=== PATIENT | female | born 1945 | race Caucasian/White ===

== ENCOUNTER → 2017-03-16 | Outpatient (CLI) | payer OTHER | LOC: CIMAGING 07:54 | DX: Z12.31 Encounter for screening mammogram for malignant neoplasm of breast (principal) | CPT/HCPCS: G0202 ==

== ENCOUNTER 2018-01-23 22:24 | Observation (INO) | payer OTHER ==
--- NOTE | 2018-01-23 22:50 | CPEKG ---
Heart Rate: 61 RR Interval: 984 P-R Interval: 172 QRSD Interval: 138 QT Interval: 492 QTC Interval: 496 P Delano: 1 QRS Delano: 5 T Wave Delano: 20 EKG Severity - ABNORMAL ECG - EKG Impression: SINUS RHYTHM EKG Impression: RIGHT BUNDLE BRANCH BLOCK Electronically Signed By: Michelle Dixon 24-Jan-2018 07:16:19
[2018-01-23 22:59] LABS: PLATELET COUNT 290 10^3/uL (150-400)
[2018-01-23 23:05] LABS: INR 1.1 (0.83-1.16); PROTIME(PATIENT) 14.4 SEC (12.0-15.0)
--- NOTE | 2018-01-23 23:24 | EDPHY ---
General - History Smoking Status: Never smoked Time Seen by Provider: 01/23/18 22:45 Narrative: CHIEF COMPLAINT: Slurred speech, dizziness HISTORY OF PRESENT ILLNESS: Patient presents with spouse at bedside. She complains of 2 episodes of feeling dizzy, lightheaded and 1 episode of slurred speech. The 1st episode was the 9:00 a.m.. It lasted several minutes of lightheadedness and dizziness. No spinning sensation. No nausea. She says"I felt weird and couldn't move." No headache or chest pain. No shortness of breath. This resolved spontaneously. It returned again at 9:30 p.m. This evening while sitting on the couch. She describes feeling lightheaded with no spinning sensation. She reports slurred speech and her corroborates this. There is no unilateral complain of any kind. No weakness. No sensory complaints distally. Symptoms resolved approximately 10 min later spontaneously and have not returned. No previous TIA or stroke. No coronary artery disease. She does have hypertension on 3 medications. She does have secondary complaint of dysuria, starting yesterday feeling as though she has a urinary tract infection. No flank pain. No fever. No hematuria. No other associated complaints or modifying factors. REVIEW OF SYSTEMS: Ten systems reviewed and are negative unless otherwise noted in the HPI PCP: Dr. Mcghee SPECIALISTS: None PAST MEDICAL HISTORY: Hypertension, PAST SURGICAL HISTORY: Gastric bypass, cholecystectomy SOCIAL HISTORY: Never smoker. No drug use. Occasional alcohol use. 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 No nystagmus or dysconjugate gaze. EOMs intact. ENT, Mouth: Mucous membranes moist Neck: Normal inspection, supple, non-tender Respiratory: Lungs are clear to auscultation Cardiovascular: Regular rate and rhythm. No murmur. Symmetric radial and DP pulses 2+. Gastrointestinal: Abdomen is soft and nontender Back: non-tender, no bony abnormalities Neurological: GCS 15. Cranial nerves 2-12 grossly intact. A&O, nonfocal, normal gait. Strength is symmetric in all 4 limbs. No pronator drift. Normal [id number]. Normal heel to [place]. NIH stroke scale 0. Skin: Warm and dry, no rash Extremities: Nontender, no pedal edema Psychiatric: Mood and affect normal DIFFERENTIAL DIAGNOSES: Including but not limited to hemorrhagic stroke, ischemic stroke, TIA, vertigo, near-syncope MDM: 10:55 p.m. Suspected TIA with 2 episodes today. Most recently 9:30 p.m. Lasted for approximately 10 min of slurred speech, lightheadedness and difficulty moving. She is completely asymptomatic at this time. Her neuro exam is well within normal limits tender NIH stroke scale is 0. Her vital signs do reveal hypertension but no tachycardia or abnormalities otherwise. She is in no acute distress. I discussed with Dr. Dixon and will proceed with TIA vs Stroke workup. 11:20 p.m. Notified by radiologist Dr. Alvarado, CT scan of the head is unremarkable for any acute findings. Laboratory studies returning with no abnormalities of the CBC or chemistry. Troponin negative. Urinalysis does suggest urinary tract infection. I have ordered aspirin by mouth. Dr. Dixon will evaluate the patient. 11:40 p.m. Case discussed with hospitalist Dr. Toure. She will admit the patient to her service. We will start treatment of the UTI with p.o. Keflex. She is admitted in stable condition. She is still asymptomatic at this time. Pressure is now 177/85. EKG interpretation: Dr. Dixon SUPERVISION: Patient was evaluated and examined in conjunction with my secondary supervising physician as documented. We have both examined the patient. (Irvin Alexis) Medical Decision Making: ED PA DICTATION I evaluated and participated in the management of the patient. I also evaluated the patient independently. My co-signature indicates that I have reviewed this chart and I agree with the findings and plan of care as documented. My personal H&P findings include: This is a 72-year-old female with 2 discrete episodes lasting for several minutes which include dizziness, slurring of speech, some clumsiness of her hands. She has a history of hypertension. Here she is hypertensive, her neurologic exam is unremarkable. Her CT scan of her head is unremarkable as well for any acute findings. I feel she could be suffering from a TIA and agree with the PAs assessment as detailed above. (Michelle Dixon) - Diagnostics Imaging Results: Imaging Impressions Chest X-Ray 01/23/18 22:52 Impression: Clear lungs. No acute process. Head CT 01/23/18 22:52 Impression: Normal brain. No intracranial hemorrhage or evidence of ischemia. Findings discussed with Emergency Department physician senior sales assistant, Irvin Alexis at 01/23/2018 23:23. - Objective Vital Signs: Initial Vital Signs Temperature (C) 36.9 C 01/23/18 22:27 Heart Rate 60 01/23/18 22:27 Respiratory Rate 16 01/23/18 22:27 Blood Pressure 223/73 H 01/23/18 22:27 O2 Sat (%) 97 01/23/18 22:27 O2 Delivery Mode Room Air Allergies/Adverse Reactions: ampicillin Allergy (Verified 01/23/18 22:33) sulfamethoxazole [From Bactrim] Allergy (Verified 01/23/18 22:33) trimethoprim [From Bactrim] Allergy (Verified 01/23/18 22:33) Home Medications: Medication Instructions Recorded Atenolol 01/23/18 Cozaar 01/23/18 Hydrochlorothiazide 01/23/18 Laboratory Results: Laboratory Results 01/23/18 22:50 01/23/18 22:50 01/23/18 01/23/18 01/23/18 23:00 22:50 22:50 WBC RBC Hgb Hct MCV MCH MCHC RDW Plt Count MPV Neut % (Auto) Lymph % (Auto) [place] % (Auto) Eos % (Auto) Baso % (Auto) Nucleat RBC Rel Count Absolute Neuts (auto) Absolute Lymphs (auto) Absolute Monos (auto) Absolute Eos (auto) Absolute Basos (auto) Absolute Nucleated RBC Immature Gran % Immature Gran # PT 14.4 SEC SEC (12.0-15.0) INR 1.10 (0.83-1.16) APTT 28.1 SEC SEC (23.0-38.0) Sodium 143 mEq/L mEq/L (135-145) Potassium 3.5 mEq/L mEq/L (3.5-5.2) Chloride 104 mEq/L mEq/L (97-110) Carbon Dioxide 27 mEq/l mEq/l (22-31) Anion Gap 12 mEq/L mEq/L (8-16) BUN 20 mg/dL mg/dL (7-23) Creatinine 0.4 mg/dL L mg/dL (0.6-1.0) Estimated GFR > 60 Glucose 93 mg/dL mg/dL (70-100) Calcium 9.1 mg/dL mg/dL (8.5-10.4) Troponin I < 0.012 ng/mL ng/mL (0.000-0.034) Urine Color YELLOW Urine Appearance CLEAR Urine pH 6.0 (5.0-7.5) Ur Specific [place] 1.020 (1.002-1.030) Urine Protein NEGATIVE (NEGATIVE) Urine Ketones TRACE H (NEGATIVE) Urine Blood NEGATIVE (NEGATIVE) Urine Nitrate NEGATIVE (NEGATIVE) Urine Bilirubin NEGATIVE (NEGATIVE) Urine Urobilinogen 0.2 EU EU (0.2-1.0) Ur Leukocyte Esterase 2+ H (NEGATIVE) Urine RBC OCCASIONAL /hpf /hpf (0-3) Urine WBC 5-10 /hpf H /hpf (0-3) Ur Epithelial Cells 2+ /lpf H /lpf (NONE-1+) Urine Bacteria 2+ /hpf H /hpf (NONE SEEN) Urine Mucus 1+ /lpf /lpf (NONE-1+) Urine Glucose NEGATIVE (NEGATIVE) 01/23/18 22:50 WBC 6.35 10^3/uL 10^3/uL (3.80-9.50) RBC 4.49 10^6/uL 10^6/uL (4.18-5.33) Hgb 14.1 g/dL g/dL (12.6-16.3) Hct 41.5 % % (38.0-47.0) MCV 92.4 fL fL (81.5-99.8) MCH 31.4 pg pg (27.9-34.1) MCHC 34.0 g/dL g/dL (32.4-36.7) RDW 12.0 % % (11.5-15.2) Plt Count 290 10^3/uL 10^3/uL (150-400) MPV 9.6 fL fL (8.7-11.7) Neut % (Auto) 52.3 % % (39.3-74.2) Lymph % (Auto) 37.6 % % (15.0-45.0) [place] % (Auto) 6.6 % % (4.5-13.0) Eos % (Auto) 2.8 % % (0.6-7.6) Baso % (Auto) 0.5 % % (0.3-1.7) Nucleat RBC Rel Count 0.0 % % (0.0-0.2) Absolute Neuts (auto) 3.32 10^3/uL 10^3/uL (1.70-6.50) Absolute Lymphs (auto) 2.39 10^3/uL 10^3/uL (1.00-3.00) Absolute Monos (auto) 0.42 10^3/uL 10^3/uL (0.30-0.80) Absolute Eos (auto) 0.18 10^3/uL 10^3/uL (0.03-0.40) Absolute Basos (auto) 0.03 10^3/uL 10^3/uL (0.02-0.10) Absolute Nucleated RBC 0.00 10^3/uL 10^3/uL (0-0.01) Immature Gran % 0.2 % % (0.0-1.1) Immature Gran # 0.01 10^3/uL 10^3/uL (0.00-0.10) PT INR APTT Sodium Potassium Chloride Carbon Dioxide Anion Gap BUN Creatinine Estimated GFR Glucose Calcium Troponin I Urine Color Urine Appearance Urine pH Ur Specific [place] Urine Protein Urine Ketones Urine Blood Urine Nitrate Urine Bilirubin Urine Urobilinogen Ur Leukocyte Esterase Urine RBC Urine WBC Ur Epithelial Cells Urine Bacteria Urine Mucus Urine Glucose Medications Given: Hydralazine HCl (Apresoline) 10 mg IVP Q2HRS PRN PRN Reason: SBP Greater Than Stop: 07/23/18 00:41 Last Admin: 01/24/18 00:58 Dose: 10 mg Discontinued Medications Aspirin (Aspirin) 325 mg PO EDNOW ONE Stop: 01/23/18 23:31 Last Admin: 01/23/18 23:34 Dose: 325 mg Cephalexin HCl (Keflex) 500 mg PO EDNOW ONE PRN Reason: Protocol Stop: 01/23/18 23:44 Last Admin: 01/23/18 23:53 Dose: 500 mg Departure - Departure Disposition: [facility] In[facility] Acute Clinical Impression: TIA (transient ischemic attack) Qualifiers: Transient cerebral ischemia type: unspecified Qualified Code(s): G45.9 - Transient cerebral ischemic attack, unspecified Condition: Fair
[2018-01-23] MEDS ORDERED: ASPIRIN 325 MG TAB PO ONE (23:30)
[2018-01-23] MEDS ORDERED: CEPHALEXIN 500 MG CAP PO ONE (23:43)
[2018-01-23] MEDS ORDERED: ACETAMINOPHEN 325 MG TAB PO PRN (23:59)
[2018-01-23] MEDS ORDERED: ONDANSETRON 4 MG/2 ML VIAL IVP PRN (23:59)
[2018-01-24] MEDS ORDERED: hydrALAZINE 20 MG/ML VIAL IVP PRN (00:42)
[2018-01-24 05:16] LABS: PLATELET COUNT 245 10^3/uL (150-400)
--- NOTE | 2018-01-24 08:44 | GHP ---
[f rep st] HISTORY AND PHYSICAL DATE OF ADMISSION: 01/23/2018 SOURCE: Patient provides history, appears reliable. EMR was reviewed and case discussed with ED pro vider. CHIEF COMPLAINT: Slurred speech and dizziness. 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 The patient reports her 1st episode occurred approximately 0900 in the morning. She was standing in the kitchen when she suddenly felt dizzy. She denies any numbness, ti ngling, or focal weakness, but she felt so lightheaded she thought she might pass out. The patient c ried out for her and she felt that she was slurring her words. He did arrive and after sever al minutes, her symptoms improved and resolved. The patient subsequently went about her day and in t he evening while she was sitting on the couch with her family watching TV, she developed sudden onset of similar symptoms with lightheadedness, presyncope, and slurring speech. This again did seem to r esolve after less than 10 minutes. Given the recurrence of episode, patient presented to the emergen cy department for further evaluation. In the ED, patient was noted to have normal neurologic functio n without any focal findings and CT head was found to be negative. At time of my interview on the vt dical floor, patient was denying any issues or complaints or symptoms neurologically. She denies any associated chest pain, palpitations, shortness of breath, cough, fevers, chills, or changes in visio n. REVIEW OF SYSTEMS: Negative, except as noted above. ALLERGIES: Bactrim and ampicillin. HOME MEDICATIONS: Cozaar, atenolol, hydrochlorothiazide, and multivitamins. PAST MEDICAL HISTORY: Significant for hypertension and melanoma that did not require any chemotherap y. PAST SURGICAL HISTORY: Significant for gastric bypass, cholecystectomy, JENNIFER and BSO. FAMILY HISTORY: Negative for CVA or seizures. SOCIAL HISTORY: Patient is , lives with her . She has good family support in [facility]. S he does not smoke or use drugs. She only drinks occasionally. 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 CODE STATUS: DNR, DNI. PHYSICAL EXAMINATION: VITAL SIGNS: Upon arrival to the emergency department, blood pressure 223/73, heart rate was 60, respiratory rate 16, O2 saturation 97% on room air with temperature 36.9. Vitals available at time of interview: Blood pressure 220/66, heart rate 75, respiratory rate 17, O2 satur ation 95% on room air with a temperature 36.6. GENERAL: No acute distress. Very pleasant, overweig ht, adult female who is resting comfortably in bed. HEAD: Normocephalic, atraumatic. EYES: Extrao cular muscles are intact. Pupils equal, round, reactive to light bilaterally symmetric, and no scler al icterus or conjunctival injection. ENT: Mucous membranes appear moist. No pharyngeal erythema o r exudate. NECK: Supple. Trachea midline. NEUROLOGIC: Cranial nerves 2-12 intact symmetric bilat erally. Patient without a pronator drift. She is awake, alert, and oriented x4. Sensation intact t o upper and lower extremities. PSYCHIATRIC: Thought process, content, and questions appropriate. P atient oriented as above. LABORATORY STUDIES: WBC 6.35, H and H 14.1 and 41.5, MCV 92.4, platelet count is 290. No bands. PT is 14.4, INR is 1.1, PTT is 28.1. Sodium 143, potassium 3.5, chloride 104, CO2 is 27, anion gap 12, BUN 20, creatinine 0.4, GFR greater than 60, glucose 93, calcium 9.1. Troponin is negative. UA specific gravity 1.020 with a pH of 6.4 , leukocyte esterase 2+, WBCs 5-10, bacteria 2+, mucus 1+, otherwise negative. EKG reviewed myself showing normal sinus rhythm, sinus burak in the 50s-60s, right bundle branch bloc k. No acute ST changes. QTc is 496. CT head was negative for acute findings. ASSESSMENT AND PLAN: This is a very pleasant 72-year-old female who presents with multiple episodes of dysarthria and severe sudden onset lightheadedness. 1. Transient ischemic attack, suspicious, given patient's recurrent symptoms and slurred speech. e has no evidence of any focal deficits at this time and CT head was within normal limits. We will p johana to obtain an echocardiogram with bubble, carotid Dopplers, and MRI this morning. Non t-PA stroke protocol in place. Physical therapy, occupational therapy, speech therapy consulted for assessment. 2. Accelerated hypertension. The patient is on triple antihypertensive therapy. Despite this, she has had several episodes of elevated blood pressure. She reports this has been not typical, particul abraham with a systolic blood pressure in the 200s. Hydralazine will be available p.r.n. We will plan to resume patient's home medications, but will need to monitor her heart rate before resuming atenolo l. 3. Fluid electrolyte nutrition. Patient tolerating p.o. Diet is cardiac. 4. Electrolyte. Replacement if needed. 5. Nutrition. Diet as tolerated. 6. Prophylaxis. Sequential compression devices. Initiating anticoagulation secondary to patient's increased risk factors. 7. Cor is do not resuscitate, do not intubate. Discussed with the patient. She does not want any r esuscitation. 8. Disposition. Patient has been admitted to observation status, currently in the PCU. /[id number]/MODL
[2018-01-24] MEDS ORDERED: ENOXAPARIN 40 MG/0.4 ML SYR SC SCH (09:00)
[2018-01-24] MEDS ORDERED: ASPIRIN 81 MG CHEWABLE TAB PO SCH (09:00)
[2018-01-24] MEDS ORDERED: NON-FORMULARY NEW DRUG (Losartan Potassium [Losartan Potassium] 100 MG) PO SCH (11:45)
[2018-01-24] MEDS ORDERED: METRONIDAZOLE 0.75 % 45 GEL TP SCH (11:45)
[2018-01-24] MEDS ORDERED: HYDROCHLOROTHIAZIDE 12.5 MG CAP PO SCH (11:45)
[2018-01-24] MEDS ORDERED: ATENOLOL 50 MG TAB PO SCH (11:45)
[2018-01-24 12:22] VITALS: BP 176/80; PULSE 67; RESP 15; TEMP 98; O2SAT 92
--- NOTE | 2018-01-24 12:23 | HOSPPROG ---
Hospitalist Progress Note Assessment/Plan: 72 yo F w "spell" of dizziness and slurred speech ?TIA: this is atypical for a neurovascular event although agree w stroke workup I feel that orthostasis (seen here ) or arrhythmia more likely htn : continue meds orthostasis: follow uti: abnormal ua plus sx so will treat unlikley to be cause of this event dispo: home if stroke workup neg Subjective: case d/w dr maldonado. tele - no burak or tachyarrhythmia (interp by me) Objective: Vital Signs Temp Pulse Resp BP Pulse Ox 36.8 C 69 16 171/82 H 96 01/24/18 08:00 01/24/18 09:35 01/24/18 08:00 01/24/18 09:35 01/24/18 04:00 Laboratory Results 01/24/18 04:38 01/24/18 04:38 01/23/18 01/24/18 01/25/18 04:59 05:59 05:59 Intake Total Output Total Balance PT 14.4 SEC (12.0-15.0) 01/23/18 22:50 INR 1.10 (0.83-1.16) 01/23/18 22:50 - Physical Exam Constitutional: no apparent distress, appears nourished Eyes: PERRL, anicteric sclera Ears, Nose, Mouth, Throat: moist mucous membranes, hearing normal Cardiovascular: regular rate and rhythym, no murmur, rub, or gallop Respiratory: no respiratory distress, no rales or rhonchi Gastrointestinal: normoactive bowel sounds, soft, non-tender abdomen Genitourinary: no bladder fullness, No lynn in urethra Skin: warm, normal color Musculoskeletal: full muscle strength, no muscle tenderness Neurologic: AAOx3 Psychiatric: interacting appropriately ICD10 Worksheet Patient Problems: Problems Problem Status Onset TIA (transient ischemic attack) Acute
[2018-01-24] MEDS ORDERED: cefTRIAXone 1 GM in STERILE WATER INJ 10 ML IV SCH (12:30)
--- NOTE | 2018-01-24 13:09 | ECHO ---
[email or web address] [address] [address] Main: [phone] Fax: [email or web address] Echocardiogram Name: GIL CHAIREZ MR#: [id number] Study Date: 01/24/2018 Study Time: 10:24 AM Date of : 1945 Age: 72 year(s) Height: 165.1 cm (65 in.) Weight: 81.65 kg (180 lb.) BSA: 1.89 m2 Gender: Female Examination: Echo with Agitated Saline Indication: TIA, Bubble exam Image Quality: Contrast: Requested by: Miguelina Toure BP: 171 mmHg/82 mmHg Heart Rate: Rhythm: Indication: TIA, Bubble exam Procedure Staff Grainer Machine: Philip Rogers RDCS Reading Physician: Eber Zpaien MD Requesting Provider: Conclusions: Normal size left ventricle. No LV hypertrophy. Normal global systolic LV function. EF is 71 %. Diastolic dysfunction is present. . Normal size right ventricle. The left atrium is normal in size. An agitated saline study was performed and was negative for intracardiac shunting. The right atrium is normal in size. The mitral valve is normal in appearance and function. Mild aortic valve regurgitation is present. The tricuspid valve is normal in appearance and function. Pulmonary valve not well visualized. No pericardial effusion. Measurements: Chambers Valvular Assessment AV/MV Valvular Assessment TV/PV Normal Normal Normal Name Value Range Name Value Range Name Value Range Ao Mame (MM): 2.6 cm (2.2 cm-3.7 AV Vmax: 1.36 m/s (1 m/s-1.7 PV Vmax: 0.76 m/s (0.6 m/s-0.9 cm) m/s) m/s) IVSd (2D): 0.8 cm (0.6 cm-1.1 AV maxP mmHg ( - ) PV PGmax: 2 mmHg ( - ) cm) LVOT Vmax: 0.84 m/s (0.7 m/s-1.1 LVDd (2D): 5.2 cm (3.9 cm-5.3 m/s) cm) AR (PHT): 590 ms ( - ) LVDs (2D): 3.1 cm (2.1 cm-4 MV E Vmax: 0.52 m/s ( - ) cm) MV A Vmax: 0.77 m/s ( - ) LVPWd (2D): 1.0 cm ( - ) MV E/A: 0.68 ( - ) LVEF (2D): 71 (>=54 %) Patient: GIL CHAIREZ Study Date: 01/24/2018 Page 1 of 2 10:24 AM Continued Measurements: Chambers Valvular Assessment AV/MV Name Value Name Value LADs: 3.7 cm MV E/E' Septal: 10.20 LADs Lon.8 cm MV E/E' Lateral: 10.60 LA Area: 16.6 cm2 AR Vmax: 3.09 cm/s Findings: Left Ventricle: Normal size left ventricle. No LV hypertrophy. Normal global systolic LV function. EF is 71 %. No regional wall motion abnormality. Diastolic dysfunction is present. . Right Ventricle: Normal size right ventricle. Left Atrium: The left atrium is normal in size. An agitated saline study was performed and was negative for intracardiac shunting. Right Atrium: The right atrium is normal in size. Mitral Valve: The mitral valve is normal in appearance and function. Aortic Valve: The aortic valve is tri-leaflet. Mild aortic valve regurgitation is present. Tricuspid Valve: The tricuspid valve is normal in appearance and function. Pulmonic Valve: Pulmonary valve not well visualized. Aorta: The aorta is normal. Pericardium: No pericardial effusion. (No Signature Object) Patient: GIL CHAIREZ Study Date: 01/24/2018 Page 2 of 2 10:24 AM [id number]
--- NOTE | 2018-01-24 15:00 | GDS ---
[f rep st] DISCHARGE SUMMARY DISCHARGE DIAGNOSES: 1. Spell, uncertain if it represents a transient ischemic attack. 2. Urinary tract infection. 3. Hypertension. 4. Orthostasis. Please see admission history and physical by Dr. Miguelina Toure. The patient presented with a spell de scribed as slurred speech and dizziness. There was no laterality to it. She had a workup that showe d a normal echocardiogram, normal noncontrast head CT. She had no bradycardia, tachycardia, or atria l fibrillation on the monitor. No pauses. She had an MRI showing mild nonspecific white matter disease consistent with microvascular ischemic gliosis. The patient's symptoms completely res olved by the time of presentation. I feel this is unlikely to represents a TIA. I felt it was actua lly most consistent with a bradyarrhythmia, but there was not captured on telemetry. She was orthost atic, but never hypotensive. She was euvolemic. She did have pyuria and a bit of urinary symptoms, so she is treated with Keflex. She is discharged home. 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 If these continue to recur, it may be worth having an outpatient playground monitor. /[id number]/MODL
[2018-01-24] MEDS ORDERED: CALCIUM CARBONATE 500 MG TAB PO SCH (16:00)
[2018-01-24] MEDS ORDERED: CENTRUM SILVER PO SCH (18:00)
--- NOTE | 2018-01-24 18:01 | ASMTCMCOM ---
CM Note CM Note Notes: Pt admitted with TIA. Further testing today. ST/PT/OT evals pending. Pt's DC needs are unclear at this time. Date Signed: 01/24/2018 10:51 AM Electronically Signed By:Carissa Goode LCSW
[2018-01-25] MEDS ORDERED: MULTIVITAMINS 1 EACH TAB PO SCH (09:00)
[2018-01-25] MEDS ORDERED: PIMECROLIMUS 1% 30 GM CRTUBE TP SCH (09:00)
[2018-01-25] MEDS ORDERED: IRON PO SCH (09:00)
[2018-01-25] MEDS ORDERED: Herbals/Supplements -Info Only PO SCH (09:00)
[2018-01-25] MEDS ORDERED: LOSARTAN POTASSIUM 50 MG TAB PO SCH (09:00)
[2018-01-25] MEDS ORDERED: POTASSIUM CL 20 MEQ/15 ML UDCUP PO SCH (09:00)
[2018-01-25] MEDS ORDERED: [UNRECOGNIZED DRUG - OTHER] PO SCH (09:00)
== END 2018-01-24 16:20 | disposition home or self-care (01) ==
LOC: INTOOBSV 23:43 → F3N 01-24 00:16
PROVIDERS: ADMIT Family Medicine; ATTEND Family Medicine
DX: R47.81 Slurred speech (principal); R42 Dizziness and giddiness; N39.0 Urinary tract infection, site not specified; I10 Essential (primary) hypertension
CPT/HCPCS: 70450; 70551; 71045; 92523; 93005; 93306; 93880; 97161; 97530; G0378; G8978; G8979; G8980; G9165; G9166; G9167; J0360; J0696; J1650; 84481-90

== ENCOUNTER → 2018-03-17 | Outpatient (CLI) | payer OTHER | LOC: CIMAGING 07:28 | PROVIDERS: ATTEND Family Medicine | DX: Z12.31 Encounter for screening mammogram for malignant neoplasm of breast (principal); Z85.820 Personal history of malignant melanoma of skin ==

== ENCOUNTER 2018-04-30 08:55 | Observation (INO) | payer OTHER ==
[2018-04-30 09:25] LABS: PLATELET COUNT 265 10^3/uL (150-400)
--- NOTE | 2018-04-30 09:49 | EDPHY ---
H & P Time Seen by Provider: 04/30/18 09:13 HPI/ROS: CHIEF COMPLAINT: Weakness right arm and leg HISTORY OF PRESENT ILLNESS: 73-year-old female presents to the emergency department by private vehicle with her with weakness in her right arm and right leg. She states 2 nights ago she noted that she was having difficulty signing a birthday card gripping her pen with her right hand. She states that that persisted the following day and then last evening this has progressed now and to some weakness in her right leg and right arm. She is having difficulty walking where she feels like she has to hold on to something and feels like she is "weaving"when she walks. She has no headache. No visual changes. She does not feel dizzy. No reported trauma. She feels like she is having difficulty speaking where she is a bit slower and has to "think about it ". The patient was admitted to the hospital January 2018 and workup for possible TIA versus episodes of bradycardia. She is scheduled see silverware etcher in May. REVIEW OF SYSTEMS: Constitutional: No fever, no chills. Eyes: No double or blurry vision. ENT: No sore throat. Respiratory: No cough, no shortness of breath. Cardiac: No chest pain. Gastrointestinal: No abdominal pain, vomiting or diarrhea. Genitourinary: No dysuria. Musculoskeletal: No neck or back pain. Skin: No rashes. Neurological: No headache. 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 Mentating normally and answering questions appropriately. at bedside. Eyes: Pupils equal and round. Extraocular motions are all intact. ENT: Mouth: Mucous membranes moist. Respiratory: No wheezing, rhonchi, or rales, lungs are clear to auscultation. Cardiovascular: Regular rate and rhythm. Gastrointestinal: Abdomen is soft and nontender, no masses, no rebound or guarding, bowel sounds normal. Neurological: Alert and oriented x 3, cranial nerves II through XII grossly intact. Slight weakness noted in her right hand and her right leg as mentioned below. Skin: Warm and dry, no rashes. Musculoskeletal: Nontender to palpate along the cervical, thoracic or lumbar spine. Neck is supple. Extremities: Full range of motion and no peripheral edema. Weakness with gripping the right hand compared to the left. Weakness with plantar flexion and the right foot compared to the left. Psychiatric: Patient is oriented X 3, there is no agitation. Constitutional: Initial Vital Signs Temperature (C) 36.6 C 04/30/18 09:01 Heart Rate 61 04/30/18 09:01 Respiratory Rate 18 04/30/18 09:01 Blood Pressure 190/55 H 04/30/18 09:01 O2 Sat (%) 95 04/30/18 09:01 O2 Delivery Mode Room Air Allergies/Adverse Reactions: ampicillin Allergy (Verified 04/30/18 08:58) sulfamethoxazole [From Bactrim] Allergy (Verified 04/30/18 08:58) trimethoprim [From Bactrim] Allergy (Verified 04/30/18 08:58) Home Medications: Medication Instructions Recorded Aspirin [Aspirin 81mg (*)] 81 mg PO DAILY tab.chew 01/24/18 Atenolol [Tenormin 50 mg (*)] 50 mg PO BID 01/24/18 Calcium Carbonate [[id number]] 500 mg PO TID 01/24/18 Flinstone Complete/Iron Chew 1 tab PO DAILY 01/24/18 Herbals/Supplements -Info Only 1 ea PO DAILY 01/24/18 Hydrochlorothiazide [HCTZ (*)] 12.5 mg PO DAILY 01/24/18 Losartan Potassium 100 mg PO DAILY 01/24/18 Potassium Chloride Po [Potassium 10 meq PO DAILY 01/24/18 Chloride 20 mg/15 ml (*)] metroNIDAZOLE 0.75 % [Metrogel 1 pamela TP DAILY 01/24/18 0.75% Topical Gel] Cyanocobalamin [Vitamin B12 (*)] 500 mcg PO DAILY 04/30/18 Multivitamins [Multivitamin (*)] 1 each PO DAILY@18 04/30/18 [place]-3 Fatty Acids [Fish Oil 1000 1,000 mg PO DAILY 04/30/18 mg (*)] Rosuvastatin Calcium [Crestor] 10 mg PO HS 04/30/18 amLODIPine BESYLATE [Norvasc 5 mg 5 mg PO DAILY 04/30/18 (*)] Medical Decision Making - Diagnostics Imaging Results: Imaging Impressions Head CT 04/30/18 09:14 Impression: 1. No acute intracranial findings. 2. Diffuse cerebral atrophy with periventricular and subcortical low attenuation consistent with chronic microvascular ischemic gliosis. Findings discussed with SIMRAN PATEL 04/30/2018 at 1121. Head CTA 04/30/18 09:14 Impression: 1. No acute vascular findings. If symptoms persist and clinical suspicion warrants, consider MRI. 2. Degenerative changes cervical spine. 3. Additional findings as above. Stenoses are calculated using [place] Symptomatic Carotid Endarterectomy Trial (NASCET) criteria. Findings discussed with Simran Patel on 04/30/2018 at 11:21 a.m. Neck CTA 04/30/18 09:14 Impression: 1. No acute vascular findings. If symptoms persist and clinical suspicion warrants, consider MRI. 2. Degenerative changes cervical spine. 3. Additional findings as above. Stenoses are calculated using [place] Symptomatic Carotid Endarterectomy Trial (NASCET) criteria. Findings discussed with Simran Patel on 04/30/2018 at 11:21 a.m. Brain MRI 04/30/18 11:42 Impression: 1. 11-mm focus of diffusion restriction involving the left side of the brainstem within the everette suspicious for pontine infarction. 2. Moderate volume white matter microvascular ischemic gliosis. Results called to Jennifer Jaramillo PA-C, at 3:00 PM. Imaging: Discussed imaging studies w/ flour blender helper Radiologist ED Course/Re-evaluation: 73-year-old female presents to the emergency department with right-sided weakness and concern for possible CVA. Laboratory studies are unremarkable. The case was discussed with Dr. Simran Patel, supervising physician, who did not directly evaluate the patient but agrees with treatment and plan. The patient took her baby aspirin this morning. CT and CT angiogram of her head were negative. I spoke with the on-call neurologist, Dr. Chao Penny as recommended by the hospitalist, he recommended obtaining MRI of her brain. The patient will be admitted to the hospitalist, Dr. Kitchen, for right-sided weakness since she is unable to ambulate without assistance. MRI of the brain was reported to me by Dr. Carmine Block at 1500 revealed left- sided brainstem stroke at the left medulla next to the everette. Differential Diagnosis: Including but not limited to CVA, TIA, arrhythmia, electrolyte abnormality, neuropathy - Data Points Laboratory Results: Laboratory Results 04/30/18 09:00 04/30/18 09:00 04/30/18 04/30/18 04/30/18 09:21 09:00 09:00 WBC 6.58 10^3/uL 10^3/uL (3.80-9.50) RBC 4.15 10^6/uL L 10^6/uL (4.18-5.33) Hgb 13.3 g/dL g/dL (12.6-16.3) Hct 38.8 % % (38.0-47.0) MCV 93.5 fL fL (81.5-99.8) MCH 32.0 pg pg (27.9-34.1) MCHC 34.3 g/dL g/dL (32.4-36.7) RDW 12.6 % % (11.5-15.2) Plt Count 265 10^3/uL 10^3/uL (150-400) MPV 9.9 fL fL (8.7-11.7) Neut % (Auto) 68.1 % % (39.3-74.2) Lymph % (Auto) 21.4 % % (15.0-45.0) [place] % (Auto) 7.4 % % (4.5-13.0) Eos % (Auto) 1.7 % % (0.6-7.6) Baso % (Auto) 1.1 % % (0.3-1.7) Nucleat RBC Rel Count 0.0 % % (0.0-0.2) Absolute Neuts (auto) 4.48 10^3/uL 10^3/uL (1.70-6.50) Absolute Lymphs (auto) 1.41 10^3/uL 10^3/uL (1.00-3.00) Absolute Monos (auto) 0.49 10^3/uL 10^3/uL (0.30-0.80) Absolute Eos (auto) 0.11 10^3/uL 10^3/uL (0.03-0.40) Absolute Basos (auto) 0.07 10^3/uL 10^3/uL (0.02-0.10) Absolute Nucleated RBC 0.00 10^3/uL 10^3/uL (0-0.01) Immature Gran % 0.3 % % (0.0-1.1) Immature Gran # 0.02 10^3/uL 10^3/uL (0.00-0.10) Sodium 138 mEq/L mEq/L (135-145) Potassium 3.6 mEq/L mEq/L (3.3-5.0) Chloride 106 mEq/L mEq/L (97-110) Carbon Dioxide 26 mEq/l mEq/l (22-31) Anion Gap 6 mEq/L L mEq/L (8-16) BUN 17 mg/dL mg/dL (7-23) Creatinine 0.5 mg/dL L mg/dL (0.6-1.0) Estimated GFR > 60 Glucose 102 mg/dL H mg/dL (70-100) Calcium 9.3 mg/dL mg/dL (8.5-10.4) POC Troponin I 0.01 ng/mL ng/mL (0.00-0.08) Point of Care Test Results: Chemistry 04/30/18 09:21 POC Troponin I 0.01 ng/mL ng/mL (0.00-0.08) Departure - Departure Disposition: [facility] Inpatient Acute Clinical Impression: Right sided weakness, Left-sided brainstem stroke Condition: Good
[2018-04-30] MEDS ORDERED: IOPAMIDOL (ISOVUE 370) 100 ML BTL IV ONE (10:03)
--- NOTE | 2018-04-30 10:41 | CPEKG ---
Heart Rate: 50 RR Interval: 1200 P-R Interval: 180 QRSD Interval: 140 QT Interval: 536 QTC Interval: 489 P [place]: 37 QRS [place]: 16 T Wave [place]: 11 EKG Severity - ABNORMAL ECG - EKG Impression: SINUS RHYTHM EKG Impression: RIGHT BUNDLE BRANCH BLOCK Electronically Signed By: Simran Hartman 30-Apr-2018 15:22:38
[2018-04-30] MEDS ORDERED: hydrALAZINE 20 MG/ML VIAL IVP PRN (16:29)
[2018-04-30] MEDS ORDERED: ACETAMINOPHEN 325 MG TAB PO PRN (16:31)
[2018-04-30] MEDS ORDERED: ONDANSETRON 4 MG/2 ML VIAL IVP PRN (16:31)
[2018-04-30] MEDS ORDERED: ONDANSETRON DISINTEGRATING 4 MG TAB PO PRN (16:31)
--- NOTE | 2018-04-30 16:37 | PDGENHP ---
History and Physical - Chief Complaint right arm and leg weakness - History of Present Illness 73-year-old female presents with weakness in her right arm and right leg which started 2 days ago. She states 2 nights ago she noted that she was having difficulty signing a birthday card gripping her pen with her right hand. She states that that persisted the following day and then last evening this has progressed now and to some weakness in her right leg and right arm. She is having difficulty walking where she feels like she has to hold on to something and feels like she is "weaving"when she walks. She has no headache. No visual changes. She does not feel dizzy. No reported trauma. She feels like she is having difficulty speaking where she is a bit slower and has to "think about it ". The patient was admitted to the hospital January 2018 and workup for possible TIA versus episodes of bradycardia. She is scheduled see wheat cleaner in May. In the ER, brain MRI reveals a Pontine infarction. CT Brain, CTA Neck and Head were unremarkable. She was recently admitted in January of 2018 for possible TIA. She is on a statin. She takes a baby aspirin daily. She does have HTN which has been difficult to manage despite several medical agents. She does not track her BP at home. BP today is elevated. She denies issues with swallowing. She does not have Afib. She recently had an event monitor for 30 days and there was no e/o Afib. 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 History Information - Allergies/Home Medication List Allergies/Adverse Reactions: ampicillin Allergy (Verified 04/30/18 08:58) sulfamethoxazole [From Bactrim] Allergy (Verified 04/30/18 08:58) trimethoprim [From Bactrim] Allergy (Verified 04/30/18 08:58) Home Medications: Atenolol [Tenormin 50 mg (*)] 50 mg PO BID 01/24/18 [Last Taken 04/30/18] Calcium Carbonate [[id number]] 500 mg PO TID 01/24/18 [Last Taken 04/29/18] Flinstone Complete/Iron Chew 1 tab PO DAILY 01/24/18 [Last Taken 04/30/18] Herbals/Supplements -Info Only 1 ea PO DAILY 01/24/18 [Last Taken 04/30/18] Hydrochlorothiazide [HCTZ (*)] 12.5 mg PO DAILY 01/24/18 [Last Taken 04/30/18] Losartan Potassium 100 mg PO DAILY 01/24/18 [Last Taken 04/30/18] Potassium Chloride Po [Potassium Chloride 20 mg/15 ml (*)] 10 meq PO DAILY 01/24 [Last Taken 04/29/18] metroNIDAZOLE 0.75 % [Metrogel 0.75% Topical Gel] 1 pamela TP DAILY 01/24/18 [Last Taken 04/30/18] Cyanocobalamin [Vitamin B12 (*)] 500 mcg PO DAILY 04/30/18 [Last Taken 04/30/18] Multivitamins [Multivitamin (*)] 1 each PO DAILY@18 04/30/18 [Last Taken ] [place]-3 Fatty Acids [Fish Oil 1000 mg (*)] 1,000 mg PO DAILY 04/30/18 [Last Taken Unknown] Rosuvastatin Calcium [Crestor] 10 mg PO HS 04/30/18 [Last Taken 04/29/18] amLODIPine BESYLATE [Norvasc 5 mg (*)] 5 mg PO DAILY 04/30/18 [Last Taken ] I have personally reviewed and updated: medical history, social history - Social History Smoking Status: Never smoked Review of Systems Review of Systems: ROS: 10pt was reviewed & negative except for what was stated in HPI & below Physical Exam Physical Exam: Temp Pulse Resp BP Pulse Ox 36.7 C 48 L 18 180/79 H 95 04/30/18 15:23 04/30/18 15:23 04/30/18 15:23 04/30/18 15:23 04/30/18 15:23 Constitutional: no apparent distress Eyes: PERRL, anicteric sclera Ears, Nose, Mouth, Throat: moist mucous membranes, hearing normal Cardiovascular: regular rate and rhythym, No edema Respiratory: no respiratory distress Gastrointestinal: normoactive bowel sounds, soft, non-tender abdomen Skin: warm Neurologic: AAOx3, other (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0) 04/30/18 09:00 [place] % (Auto) 7.4 % (4.5-13.0) 04/30/18 09:00 Eos % (Auto) 1.7 % (0.6-7.6) 04/30/18 09:00 Baso % (Auto) 1.1 % (0.3-1.7) 04/30/18 09:00 Nucleat RBC Rel Count 0.0 % (0.0-0.2) 04/30/18 09:00 Absolute Neuts (auto) 4.48 10^3/uL (1.70-6.50) 04/30/18 09:00 Absolute Lymphs (auto) 1.41 10^3/uL (1.00-3.00) 04/30/18 09:00 Absolute Monos (auto) 0.49 10^3/uL (0.30-0.80) 04/30/18 09:00 Absolute Eos (auto) 0.11 10^3/uL (0.03-0.40) 04/30/18 09:00 Absolute Basos (auto) 0.07 10^3/uL (0.02-0.10) 04/30/18 09:00 Absolute Nucleated RBC 0.00 10^3/uL (0-0.01) 04/30/18 09:00 Immature Gran % 0.3 % (0.0-1.1) 04/30/18 09:00 Immature Gran # 0.02 10^3/uL (0.00-0.10) 04/30/18 09:00 Sodium 138 mEq/L (135-145) 04/30/18 09:00 Potassium 3.6 mEq/L (3.3-5.0) 04/30/18 09:00 Chloride 106 mEq/L (97-110) 04/30/18 09:00 Carbon Dioxide 26 mEq/l (22-31) 04/30/18 09:00 Anion Gap 6 mEq/L (8-16) L 04/30/18 09:00 BUN 17 mg/dL (7-23) 04/30/18 09:00 Creatinine 0.5 mg/dL (0.6-1.0) L 04/30/18 09:00 Estimated GFR > 60 04/30/18 09:00 Glucose 102 mg/dL (70-100) H 04/30/18 09:00 Calcium 9.3 mg/dL (8.5-10.4) 04/30/18 09:00 POC Troponin I 0.01 ng/mL (0.00-0.08) 04/30/18 09:21 Assessment & Plan Assessment: #Pontine Infarct #Right sided weakness (Acute) #HTN #HLD Plan: Neuro to see The etiology leading to her infarct is unknown. She has poorly controlled HTN and this likely has contributed. She reports that her BP were in the 230's systolic 3 months ago. Today there are values in the 180's. Her infarct likely occurred yesterday over 24 hrs ago given her hx. We will continue her home medications and give her PRN Hydralazine as needed. She may need further adjustment of her meds pending clinical course. increased Aspirin to full dose Cont with her Statin and check lipid panel to determine need to increase. Her last LDL was 92 in January A1c recently checked and was not indicative of DM Tele, although she does not have a hx of Afib and recently had an event monitor for 30 days that did not reveal Afib. PT/OT/ST Cardiac diet DNR
[2018-04-30] MEDS ORDERED: MULTIVITAMINS 1 EACH TAB PO SCH (18:00)
[2018-04-30] MEDS: ATENOLOL 50 MG TAB PO SCH (20:45)
[2018-04-30] MEDS: CALCIUM CARBONATE 500 MG TAB PO SCH (20:46)
[2018-04-30] MEDS ORDERED: ROSUVASTATIN CALCIUM 10 MG TAB PO SCH (21:00)
[2018-05-01 05:03] LABS: PLATELET COUNT 214 10^3/uL (150-400)
[2018-05-01] MEDS: ATENOLOL 50 MG TAB PO SCH (08:18)
[2018-05-01] MEDS: CALCIUM CARBONATE 500 MG TAB PO SCH (08:19)
--- NOTE | 2018-05-01 08:53 | GCON ---
[f rep st] CONSULTATION NEUROLOGIC CONSULTATION REFERRING PHYSICIAN: Dexter Kitchen MD HISTORY: The patient is a 73-year-old woman who I am asked to see in neurologic consultation regardi ng right-sided weakness. The patient was hospitalized in January with an episode of some dysarthria, o bashir a few hours intermittently, and had a workup which was negative for stroke on MRI and unremarkabl e echocardiogram. She did not see Neurology during that timeframe, but had outpatient evaluation wit angelo Fitzgerald. She was started on a statin and has been taking daily aspirin since January. She said she stopped the statin for about a month because she was having possible side effects, but has been back on that over the last 4-6 weeks with no side effects. She said she consistently takes her aspirin. Three days ago, she noticed a little bit of trouble with using her right hand when she was handwriti ng and over the next 24-48 hours, she has been aware of dysfunction of the right hand, and a little b it of the right leg and some slurred speech. She came to the hospital yesterday for evaluation and u ltimately had an MRI showing a left pontine acute ischemic infarction. CT angiogram of the head and neck do not show any large vessel stenoses. Echocardiogram was not repeated at this point. She says she still is aware of slurred speech and the right-sided weakness. PAST MEDICAL HISTORY: Notable for some hypertension. She has also apparently had some bradycardia a nd had a dewatering filtering supervisor placed for a month and she does not know the details of that at this point, and is apparently scheduled for Cardiology consultation in May with [facility]. She had a histor y of gastric bypass, hysterectomy, and cholecystectomy in the past. 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 No smoking. She is and her is currently undergoing workup for macrocytosis an d has had a recent bone marrow biopsy, but she does not know the results of that. No history of alcohol abuse. ALLERGIES: Ampicillin, sulfamethoxazole, and trimethoprim. HOME MEDICATIONS: Atenolol, calcium carbonate, hydrochlorothiazide, losartan, potassium, metronidazo le, B12, multivitamin, Crestor, and amlodipine. REVIEW OF SYSTEMS: A 10-point review of systems was completed and unremarkable except for that noted above. PHYSICAL EXAMINATION: VITAL SIGNS: Blood pressure is 166/71, pulse of 55, respirations 16, temperat ure 36.7. In reviewing her heart rate since admission, the lowest current documentation is 45. She has shown generally sinus rhythm or sinus bradycardia. EYES: Clear. NECK: Supple with no bruits o r masses. CARDIAC: Regular rate and rhythm. No murmur. GENERAL: She is awake, alert and attentiv e, and a little bit tearful as we discussed the stroke. NEUROLOGICAL: She has normal language skill s, but she has a mild dysarthria. Pupils 2 mm and reactive. Extraocular movements are intact. She has mild right lower facial weakness. Palate elevates symmetrically. Tongue protrudes midline. Fac ial sensation is preserved. Motor exam: There is a mild right gabriela paresis with about 4/5 strength affecting the arm and leg. Sensation is preserved for temperature and light touch. Mild discoordina tion on the right side with movement. Reflexes are mildly more brisk on the right than the left. LABORATORY STUDY: Shows her current LDL cholesterol of 39. Otherwise unremarkable electrolytes and CBC. The electrocardiogram in the emergency room yesterday showed sinus rhythm with suspected right bundle branch block. IMPRESSION: The total unit time is 70 minutes. 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 She does not have known embolic source. She has a history of bradycardia wit h sinus bradycardia, but unclear if that has relevance to these current symptoms or not. She does no t have any known history of atrial fibrillation. I have not seen the actual cardiac monitoring repor t. She is already on statin therapy, which will be continued for secondary stroke prophylaxis. This would be considered an aspirin failure, so I am going to switch her to Plavix 75 mg daily. I do not believe it is necessary in the short-term to repeat the echocardiogram, but we will request a Cardio logy consultation to address the issue of bradycardia and her ongoing hypertension management. She w ill have physical, occupational, and speech therapy consultations and will likely have outpatient the rapy, although I will see what they say in terms of whether she would qualify for an inpatient rehab stay. /[id number]/MODL
[2018-05-01] MEDS ORDERED: METRONIDAZOLE 0.75% 45 GM CREAM TP SCH (09:00)
[2018-05-01] MEDS ORDERED: IRON PO SCH (09:00)
[2018-05-01] MEDS ORDERED: Herbals/Supplements -Info Only PO SCH (09:00)
[2018-05-01] MEDS ORDERED: HYDROCHLOROTHIAZIDE 12.5 MG CAP PO SCH (09:00)
[2018-05-01] MEDS ORDERED: CYANO/VITAMIN B12 1000 MCG TAB PO SCH (09:00)
[2018-05-01] MEDS ORDERED: ASPIRIN 325 MG TAB PO SCH (09:00)
[2018-05-01] MEDS ORDERED: OMEGA-3 FATTY ACIDS 1,000 MG CAP PO SCH (09:00)
[2018-05-01] MEDS ORDERED: [UNRECOGNIZED DRUG - OTHER] PO SCH (09:00)
[2018-05-01] MEDS ORDERED: LOSARTAN POTASSIUM 50 MG TAB PO SCH (09:00)
[2018-05-01] MEDS ORDERED: amLODIPine BESYLATE 5 MG TAB PO SCH (09:00)
[2018-05-01] MEDS ORDERED: CLOPIDOGREL BISULFATE 75 MG TAB PO SCH (09:00)
[2018-05-01] MEDS ORDERED: POTASSIUM CL 20 MEQ/15 ML UDCUP PO SCH (09:00)
[2018-05-01 11:13] VITALS: BP 126/55
--- NOTE | 2018-05-01 14:25 | GCON ---
*DRAFT UNTIL SIGNED* CONSULTATION I have been asked to get some data by Dr. Penny on his patient in room 361. She is a woman, who has had bradycardias on the monitor intermittently and she originally had a TIA in January and now comes in with a CVA. Dr. Penny wanted the results of her 30-day cardiovascular monitor. We looked up the results on the computer and the patient is in normal sinus rhythm with an average heart rate of 60; the lowest heart rate was 42. There were no pathologic arrhythmias. There was no atrial fibrillation. No significant bradycardic events. There were no cardiovascular symptoms. I have reported this to Dr. Penny when we were talking about the patient and told him I would put the results in the chart and that was what he wanted to know. We are very happy to see the patient anytime if needed for full consultation. /[id number]/MODL MTDD
--- NOTE | 2018-05-01 15:35 | GCON ---
[f rep st] CONSULTATION I have been asked to get some data by Dr. Penny on his patient in room 361. She is a woman, who has had bradycardias on the monitor intermittently and she originally had a TIA i january and now comes in with a CVA. Dr. Penny wanted the results of her 30-day cardiovascular monitor. We looked up the results on the computer and the patient is in normal sinus rhythm with an average he art rate of 60; the lowest heart rate was 42. There were no pathologic arrhythmias. There was no at rial fibrillation. No significant bradycardic events. There were no cardiovascular symptoms. I have reported this to Dr. Penny when we were talking about the patient and told him I would put the results in the chart and that was what he wanted to know. We are very happy to see the patient anytime if needed for full consultation. /[id number]/MODL
--- NOTE | 2018-05-01 19:41 | GDS ---
[f rep st] DISCHARGE SUMMARY DISCHARGE DIAGNOSES: 1. 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 2. History of hypertension. 3. History of recent episode of dysarthria in January. 4. History of dyslipidemia. 5. History of gastric bypass. 6. History of cholecystectomy. 7. History of hysterectomy. CONSULTATIONS: 1. Neurology, Chao Penny MD. 2. Cardiology, Andre Nguyen MD. 3. PROCEDURES: 1. 04/30/2018, head CT, which showed no acute intracranial findings. There was diffuse cerebral atr ophy with periventricular and subcortical low-attenuation consistent with chronic microvascular ische sheree gliosis. 2. Head and neck computerized tomographic angiography with no acute vascular findings. 3. 04/30/2018: Brain magnetic resonance imaging, which shows an 11 mm focus of diffuse restriction involving the left side of the everette, suspicious for pontine infarction, moderate volume, white matter microvascular ischemic gliosis. BRIEF HISTORY: Please see dictated H and P by Dr. Kitchen for complete details. In brief, the leda ent is a 73-year-old female with a history of hypertension, dyslipidemia, and episode of dysarthria i n January, who presented with acute onset of weakness in her right arm and right leg starting 2 days pr ior to admission. 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 MRI of brain was obtained and showed an acute cerebral infarction. Dr. Penny of neurology has evaluated and changed her aspirin to Plavix therapy. 1. Acute infarct involving left everette. She will be discharged on Plavix. Her home statin has been c ontinued. She has had a recent monitor that did not show AFib. However, she may need long-term impl antable loop monitor. She will follow up with Cardiology in the next couple of weeks' time. 2. Hypertension. Her blood pressures were quite elevated, but improved at the time of discharge. H er home med regimen has not been changed. 3. Dyslipidemia. Her LDL was checked in this admission, and it is 39. PHYSICAL EXAM: VITAL SIGNS: On the day of discharge, blood pressure 126/55, heart rate 51, respirat ions 16, O2 saturation 94% on room air, temp of 98 degrees Fahrenheit. GENERAL: She is a pleasant f emale with mildly dysarthric speech, mild asymmetric smile. HEART: Regular rate and rhythm. LUNGS: Clear. ABDOMEN: Soft. PSYCH: Normal mood and affect. LABORATORY DATA: BMP was sodium 143, potassium 3.5, chloride 106, CO2 28, BUN 15, creatinine 0.5, gl ucose 88, triglycerides 72, total cholesterol 103, LDL 39, HDL 53. RESULTS PENDING: None. DIET: Cardiac, low-salt, low-fat diet recommended. ACTIVITY: Outpatient PT, OT and Speech Language Pathology recommended. DISCHARGE INSTRUCTIONS: 1. Follow up with Cardiology in 2 weeks' time. 2. Follow up with Neurology in 2 weeks' time. 3. Follow up with PCP. 4. Outpatient therapies as outlined above. /[id number]/MODL
== END 2018-05-01 15:21 | disposition home or self-care (01) ==
LOC: F3N 15:05
PROVIDERS: ADMIT Family Medicine; ATTEND Internal Medicine
DX: I63.8 Other cerebral infarction (principal); I10 Essential (primary) hypertension; E78.5 Hyperlipidemia, unspecified; Z98.84 Bariatric surgery status; I65.23 Occlusion and stenosis of bilateral carotid arteries; R47.1 Dysarthria and anarthria
CPT/HCPCS: 70450; 70496; 70498; 70551; 92523; 93005; 97116; 97161; 97166; 99285; G0378; G8978; G8979; G8987; G8988; G8999; G9186; Q9967; 84484-PO; J0360

== ENCOUNTER → 2018-05-25 | Outpatient (CLI) | payer OTHER | LOC: BHCLAF 09:30 | PROVIDERS: ATTEND Internal Medicine Cardiovascular Disease | DX: I63.9 Cerebral infarction, unspecified (principal); G45.9 Transient cerebral ischemic attack, unspecified | CPT/HCPCS: 93005-PO ==

== ENCOUNTER → 2018-05-28 | Day surgery (SDC) | payer OTHER ==
[~2018-05-28] MED LIST: LIDOCAINE 1% 300 MG/30 ML SDV SC ONE
--- NOTE | 2018-05-28 08:59 | PDHPUP ---
History & Physical Update H&P update statement: This history and physical update is based on an assessment of the patient which was completed after admission or registration (within 24 hours), but prior to the surgery/procedure. 73 year female with hx of Idiopathic CVA who presents for LINQ implant. H&P update: H&P reviewed & patient examined, no change in patient's condition since H&P completed
--- NOTE | 2018-05-28 09:58 | CPIP ---
[f rep st] INVASIVE CARDIAC PROCEDURE DATE OF PROCEDURE: 05/28/2018 PROCEDURE PERFORMED: [employer] implantable loop recorder. INDICATION: 73-year-old female with a history of hypertension and left everette CVA of unclear etiology. PROCEDURE: After informed consent was obtained the patient was brought to the [facility]. She was prepped and draped in a sterile fashion. The 5th intercostal space 2 cm from midline was identified. Approp riate local anesthesia with 1% lidocaine was used. Once appropriate level of local anesthesia was ob tained, incision was made at a 45 degree angle. Loop recorder was then placed without difficulty. H emostasis was achieved. Steri-Strips x3 were applied. Postoperative check of the device demonstrate s normal functioning with good capture. Patient tolerated the procedure well. PLAN: 1. Patient will be discharged home. 2. Patient is already scheduled for outpatient wound and device check next week at [facility]. /[id number]/MODL
== END | disposition home or self-care (01) ==
LOC: FCATH 07:21
PROVIDERS: ATTEND Internal Medicine Cardiovascular Disease
PROC: 0JH602Z Insertion of Monitoring Device into Chest Subcutaneous Tissue and Fascia, Open Approach (ICD-10-PCS; principal; 2018-05-28)
DX: I63.9 Cerebral infarction, unspecified (principal); I10 Essential (primary) hypertension; E78.5 Hyperlipidemia, unspecified; Z98.84 Bariatric surgery status; E78.00 Pure hypercholesterolemia, unspecified; Z85.828 Personal history of other malignant neoplasm of skin
CPT/HCPCS: C1764

== ENCOUNTER 2019-01-03 15:36 | Emergency (ER) | payer OTHER ==
[2019-01-03 15:51] VITALS: BP 146/71
--- NOTE | 2019-01-03 15:57 | EDPHY ---
H & P Stated Complaint: R shoulder pain following slip and fall Time Seen by Provider: 01/03/19 15:50 HPI/ROS: CHIEF COMPLAINT: Right humerus pain HISTORY OF PRESENT ILLNESS: Patient is a 73-year-old female who fell while walking up the steps. She was holding onto the arm route with her left hand and fell onto an outstretched right arm. She has a history of CVA this summer with very slight residual weakness in her right arm and leg. She complains of pain mostly in her mid humerus and shoulder area. She denies clavicular chest pain. She denies hitting her head or neck or back. She denies wrist or elbow pain. This happened just prior to arrival. Severity: Moderate Modifying factors: None REVIEW OF SYSTEMS: Constitutional: denies: chills, fever, recent illness, recent injury EENTM: denies: blurred vision, double vision, nose congestion Respiratory: denies: cough, shortness of breath Cardiac: denies: chest pain, irregular heart rate, lightheadedness, palpitations Gastrointestinal/Abdominal: denies: abdominal pain, diarrhea, nausea, vomiting, blood streaked stools Genitourinary: denies: dysuria, frequency, hematuria, pain Musculoskeletal: See HPI Skin: denies: lesions, rash, jaundice, bruising Neurological: denies: headache, numbness, paresthesia, tingling, dizziness, weakness Hematologic/Lymphatic: denies: blood clots, easy bleeding, easy bruising Immunologic/allergic: denies: HIV/AIDS, transplant 10 systems reviewed and negative except as noted EXAM: GENERAL: Well-appearing, well-nourished and in no acute distress. HEAD: Atraumatic, normocephalic. EYES: Pupils equal round and reactive to light, extraocular movements intact, sclera anicteric, conjunctiva are normal. ENT: TMs normal, nares patent, oropharynx clear without exudates. Moist mucous membranes. NECK: Normal range of motion, supple without lymphadenopathy or JVD. LUNGS: Breath sounds clear to auscultation bilaterally and equal. No wheezes rales or rhonchi. HEART: Regular rate and rhythm without murmurs, rubs or gallops. ABDOMEN: Soft, nontender, normoactive bowel sounds. No guarding, no rebound. No masses appreciated. BACK: No CVA tenderness, no spinal tenderness, step-offs or deformities EXTREMITIES: Right humerus pain, no obvious deformity. No elbow pain with palpation or range of motion. No wrist pain with palpation or range of motion. No clavicular tenderness. No obvious step-off shoulder. No neck pain. NEUROLOGICAL: Cranial nerves II through XII grossly intact. Normal speech, normal gait. 5/5 strength, normal movement in all extremities, normal sensation , normal reflexes PSYCH: Normal mood, normal affect. SKIN: Warm, dry, normal turgor, no visible rashes or lesions. No abrasions or lacerations. Source: Patient Exam Limitations: No limitations - Medical/Surgical History Hx Asthma: No Hx Chronic Respiratory Disease: No Hx Diabetes: No Hx Cardiac Disease: No Hx Renal Disease: No Hx Cirrhosis: No Hx Alcoholism: No Hx HIV/AIDS: No Hx Splenectomy or Spleen Trauma: No Other PMH: hystectomy, gastric bypass, cholecystectomy, HTN - Family History Significant Family History: No pertinent family hx - Social History Smoking Status: Never smoked Alcohol Use: None Constitutional: Initial Vital Signs Temperature (C) 36.5 C 01/03/19 15:48 Heart Rate 65 01/03/19 15:48 Respiratory Rate 14 01/03/19 15:48 Blood Pressure 146/71 H 01/03/19 15:48 O2 Sat (%) 99 01/03/19 15:48 O2 Delivery Mode Room Air Allergies/Adverse Reactions: ampicillin Allergy (Verified 01/03/19 16:16) sulfamethoxazole [From Bactrim] Allergy (Verified 01/03/19 16:16) trimethoprim [From Bactrim] Allergy (Verified 01/03/19 16:16) Home Medications: Medication Instructions Recorded Atenolol [Tenormin 50 mg (*)] 50 mg PO BID 01/24/18 Calcium Carbonate [[id number]] 500 mg PO TID 01/24/18 Flinstone Complete/Iron Chew 1 tab PO DAILY 01/24/18 Herbals/Supplements -Info Only 1 ea PO DAILY 01/24/18 Hydrochlorothiazide [HCTZ (*)] 25 mg PO DAILY 01/24/18 Losartan Potassium 100 mg PO DAILY 01/24/18 Potassium Chloride Po [Potassium 10 meq PO DAILY 01/24/18 Chloride 20 mg/15 ml (*)] metroNIDAZOLE 0.75 % [Metrogel 1 pamela TP DAILY 01/24/18 0.75% Topical Gel] Cyanocobalamin [Vitamin B12 (*)] 500 mcg PO DAILY 04/30/18 Multivitamins [Multivitamin (*)] 1 each PO DAILY@18 04/30/18 [place]-3 Fatty Acids [Fish Oil 1000 1,000 mg PO DAILY 04/30/18 mg (*)] amLODIPine BESYLATE [Norvasc 5 mg 5 mg PO DAILY 04/30/18 (*)] Clopidogrel Bisulfate [Plavix (*)] 75 mg PO DAILY #30 tab 05/01/18 Hydrocodone/APAP 5/325 [[place] 1 - 2 tab PO Q4H PRN #10 tab 01/03/19 5/325 (RX)] Tricor 01/03/19 Medical Decision Making - Diagnostics Imaging Results: Imaging Impressions Humerus X-Ray 01/03/19 15:56 Impression: Mildly comminuted displaced proximal right humerus fracture, as above. Imaging: Discussed imaging studies w/ call center support consultant Radiologist ED Course/Re-evaluation: Patient has a nondisplaced proximal humeral head fracture. She was placed in a sling. We discussed pain control. I will prescribe her narcotics to use as needed. She has seen Dr. Cee before and would prefer to follow up with him. I will refer her. Likely this will not require surgery. Patient and understand agree with this plan. They declined further workup at this time. Differential Diagnosis: Partial list of the Differential diagnosis considered include but were not limited to; proximal humerus fracture, dislocation and although unlikely based on the history and physical exam, I also considered nerve injury, vascular injury, elbow injury, neck injury, head injury. I discussed these differential diagnoses and the plan with the patient as well as the usual and expected course. The patient understands that the diagnosis is provisional and that in medicine we are not always correct and that further workup is often warranted. Usual and customary warnings were given. All of the patient's questions were answered. The patient was instructed to return to the emergency department should the symptoms at all worsen or return, otherwise to followup with the physician as we discussed. Departure - Departure Disposition: Home, Routine, Self-Care Clinical Impression: Closed fracture of right proximal humerus Qualifiers: Encounter type: initial encounter Fracture morphology: unspecified fracture morphology Qualified Code(s): S42.201A - Unspecified fracture of upper end of right humerus, initial encounter for closed fracture Condition: Fair Instructions: Hydrocodone/Acetaminophen (By mouth), Proximal Humerus Fracture ( ED) Referrals: Dannielle Mak MD [Primary Care Provider] - As per Instructions Delfina Cee MD [Medical Doctor] - 5-7 days, call for appt. Prescriptions: Hydrocodone/APAP 5/325 [[place] 5/325 (RX)] 1 - 2 tab PO Q4H PRN #10 tab PRN Reason: Pain, Moderate
== END 2019-01-03 16:30 | disposition home or self-care (01) ==
LOC: CED 15:36
DX: S42.201A Unspecified fracture of upper end of right humerus, initial encounter for closed fracture (principal); W19.XXXA Unspecified fall, initial encounter
CPT/HCPCS: 73060; 99283; A4565

== ENCOUNTER → 2019-04-12 | Outpatient (CLI) | payer OTHER | LOC: CIMAGING 07:54 ==